=== PATIENT | female | born 1935 | race Caucasian/White ===

== ENCOUNTER 2020-10-25 11:55 | Emergency (ER) | payer MEDICARE, BC ==
[2020-10-25] MEDS ORDERED: GI Cocktail Oral Solution 30 ML PO ONE (12:06)
[2020-10-25 12:46] LABS: ANION GAP 14.2 mEq/L (7-13); CHLORIDE,CL 104 mmol/L (98-107); SODIUM,NA 143 mmol/L (136-145)
--- NOTE | 2020-10-25 12:47 | EDM.PDOC ---
ED HPI GENERAL MEDICAL PROBLEM - General Chief Complaint: Cardiovascular Problem Stated Complaint: CHEST PAIN Time Seen by Provider: 10/25/20 12:19 Source of Information: Reports: Patient, RN, RN Notes Reviewed History Limitations: Reports: No Limitations - History of Present Illness INITIAL COMMENTS - FREE TEXT/NARRATIVE: Trace is an 85 y/o female with history of breast cancer s/p mastectomy who presents to the ED via personal vehicle with complaints of chest pain. The patient reports her chest pain began abruptly at approximately 0930 while she was sitting in her chair; she had eaten pancakes and sausage about two hours prior. She states the pain originates in her midsternal chest and radiates through her chest into her back. She characterizes the pain as an ache and rates it as a 5/10. The patient denies experiencing pain similar to this in the past and has taken one dose of Aspirin 325mg. She denies recent illness, fever, shaking chills, palpitations, nausea, vomiting, dysuria, or diarrhea. She does attest to slight shortness of breath with the chest pain. She denies a history of tobacco, alcohol, or recreational drug use. Chest Pain Score (Numeric/FACES): 5 - Related Data Allergies Allergy/AdvReac Type Severity Reaction Status Date / Time sulfa ointment Allergy Unknown Rash Uncoded 10/25/20 12:14 Home Meds: Home Meds Acetaminophen [Tylenol Arthritis] 650 mg PO Q8H PRN 07/23/20 [History] Aspirin [Aspirin EC] 325 mg PO Q6H PRN 07/23/20 [History] Calcium Carbonate/Vitamin D3 [Calcium 600-Vit D3 400 Tablet] 1 tab PO BID 07/23/20 [History] Carboxymethylcellulose Sodium [Artificial Tears] 1 drop EYEBOTH BID 07/23/20 [History] Fexofenadine [Martina] 30 mg PO DAILY PRN 07/23/20 [History] L.acidoph,Paracasei, B.lactis [Probiotic] 1 cap PO DAILY PRN 07/23/20 [History] Nystatin [Nystatin Crm] 1 applic TOP ASDIRECTED PRN 07/23/20 [History] Sennosides/Docusate Sodium [Senna-Docusate Sodium Tablet] 1 tab PO BID 07/23/20 [History] Cholecalciferol (Vitamin D3) [Vitamin D3] 1,000 unit PO DAILY 07/24/20 [History] Zinc 50 mg PO DAILY 07/24/20 [History] Past Medical History Musculoskeletal History: Reports: Arthritis Oncologic (Cancer) History: Reports: Breast - Past Surgical History GI Surgical History: Reports: Appendectomy Female Surgical History: Reports: Mastectomy Social & Family History - Family History Family Medical History: No Pertinent Family History - Tobacco Use Tobacco Use Status *Q: Never Tobacco User - Caffeine Use Caffeine Use: Reports: Coffee - Recreational Drug Use Recreational Drug Use: No ED ROS GENERAL - Review of Systems Review Of Systems: Comprehensive ROS is negative, except as noted in HPI. ED EXAM, GENERAL - Physical Exam Exam: See Below Exam Limited By: No Limitations General Appearance: Alert, No Apparent Distress Eye Exam: Left Eye: Conjunctival Injection (To lacrimal caruncula ), Bilateral Eye: PERRL (3mm) Ears: Normal External Exam, Normal Canal, Hearing Grossly Normal, Normal TMs Ear Exam: Bilateral Ear: Auricle Normal, Canal Normal, TM normal Nose: Normal Inspection, Normal Mucosa, No Blood Throat/Mouth: Normal Voice, No Airway Compromise. No: Normal Oropharynx (Dry oral mucous membranes) Head: Atraumatic, Normocephalic Neck: Normal Inspection, Supple, Non-Tender, Full Range of Motion Respiratory/Chest: No Respiratory Distress, No Accessory Muscle Use, Rales (To LLL ). No: Chest Non-Tender (Tenderness not reproducible or agravated by palpation), Crackles, Rhonchi, Wheezing Cardiovascular: Normal Peripheral Pulses, Regular Rate, Rhythm, No Edema, No Gallop, No JVD, No Murmur, No Rub Peripheral Pulses: 2+: Radial (L), Radial (R) GI/Abdominal: Normal Bowel Sounds, Soft, Non-Tender, No Distention, No Abnormal Bruit, No Mass, Pelvis Stable (Female) Exam: Deferred Rectal (Female) Exam: Deferred Back Exam: Normal Inspection, Full Range of Motion Extremities: Normal Inspection, Normal Range of Motion, Non-Tender, Normal Capillary Refill, No Pedal Edema Neurological: Alert, Oriented, CN II-XII Intact, Normal Cognition, Normal Gait, No Motor/Sensory Deficits Psychiatric: Normal Affect, Normal Mood Skin Exam: Warm, Dry, Intact, Normal Color, No Rash. No: Ecchymosis, Erythema, Jaundice, Mottled, Pallor, Petechiae #1 Interpretation EKG Date: 10/25/20 Time: 12:06 Rhythm: NSR Rate (Beats/Min): 82 [place]: Normal P-Wave: Present QRS: Normal ST-T: Normal QT: Normal NV/PQ Interval: 0.121 Comparison: NA - No Prior EKG EKG Interpretation Comments: NSR; No evidence of acute myocardial ischemia Course - Vital Signs Last Recorded V/S: Last Vital Signs Temp 98 F 10/25/20 12:09 Pulse 86 10/25/20 12:09 Resp 12 10/25/20 12:09 BP 167/83 H 10/25/20 12:09 Pulse Ox 98 10/25/20 12:09 - Orders/Labs/Meds Orders: Active Orders 24 hr Category Date Time Status EKG Documentation Completion [RC] STAT Care 10/25/20 12:00 Active Labs: Laboratory Tests 10/25/20 10/25/20 10/25/20 Range/Units 12:16 12:16 12:16 WBC 10.8 H (5.0-10.0) 10^3/uL RBC 4.15 L (4.2-5.4) 10^6/uL Hgb 12.3 (12.0-16.0) g/dL Hct 38.7 (37.0-47.0) % MCV 93.3 (80-100) fL MCH 29.6 (27.0-34.0) pg MCHC 31.8 L (33.0-35.0) g/dL Plt Count 197 (150-450) 10^3/uL Neut % (Auto) 81.8 H (42.2-75.2) % Lymph % (Auto) 9.7 L (20.5-50.1) % [place] % (Auto) 6.8 (2-8) % Eos % (Auto) 1.4 (1.0-3.0) % Baso % (Auto) 0.3 (0.0-1.0) % Sodium 143 (136-145) mmol/L Potassium 4.2 (3.5-5.1) mmol/L Chloride 104 (98-107) mmol/L Carbon Dioxide 29 (21-32) mmol/L Anion Gap 14.2 H (7-13) mEq/L BUN 17 (7-18) mg/dL Creatinine 1.17 H (0.55-1.02) mg/dL Est Cr Clr Drug Dosing 29.80 mL/min Estimated GFR (MDRD) 44 BUN/Creatinine Ratio 14.5 (No establ ref range) Glucose 99 (70-99) mg/dL Lactic Acid 1.2 (0.4-2.0) mmol/L Calcium 8.4 L (8.5-10.1) mg/dL Total Bilirubin 0.6 (0.2-1.0) mg/dL AST 89 H (15-37) U/L ALT 58 (14-59) U/L Alkaline Phosphatase 88 (46-116) U/L Troponin I < 0.017 (0.000-0.056) ng/mL C-Reactive Protein 0.2 (0.0-0.9) mg/dL B-Natriuretic Peptide 62 (0-100) pg/ml Total Protein 6.8 (6.4-8.2) g/dL Albumin 3.4 (3.4-5.0) g/dL Globulin 3.4 Albumin/Globulin Ratio 1.0 Amylase 38 (25-115) U/L Lipase 77 (73-393) U/L Urine Color (YELLOW) Urine Appearance (CLEAR) Urine pH (5.0-9.0) Ur Specific [place] (1.005-1.030) Urine Protein (NEGATIVE) Urine Glucose (UA) (NEGATIVE) Urine Ketones (NEGATIVE) Urine Occult Blood (NEGATIVE) Urine Nitrite (NEGATIVE) Urine Bilirubin (NEGATIVE) Urine Urobilinogen (0.2-1.0) mg/dL Ur Leukocyte Esterase (NEGATIVE) 10/25/20 Range/Units 13:20 WBC (5.0-10.0) 10^3/uL RBC (4.2-5.4) 10^6/uL Hgb (12.0-16.0) g/dL Hct (37.0-47.0) % MCV (80-100) fL MCH (27.0-34.0) pg MCHC (33.0-35.0) g/dL Plt Count (150-450) 10^3/uL Neut % (Auto) (42.2-75.2) % Lymph % (Auto) (20.5-50.1) % [place] % (Auto) (2-8) % Eos % (Auto) (1.0-3.0) % Baso % (Auto) (0.0-1.0) % Sodium (136-145) mmol/L Potassium (3.5-5.1) mmol/L Chloride (98-107) mmol/L Carbon Dioxide (21-32) mmol/L Anion Gap (7-13) mEq/L BUN (7-18) mg/dL Creatinine (0.55-1.02) mg/dL Est Cr Clr Drug Dosing mL/min Estimated GFR (MDRD) BUN/Creatinine Ratio (No establ ref range) Glucose (70-99) mg/dL Lactic Acid (0.4-2.0) mmol/L Calcium (8.5-10.1) mg/dL Total Bilirubin (0.2-1.0) mg/dL AST (15-37) U/L ALT (14-59) U/L Alkaline Phosphatase (46-116) U/L Troponin I (0.000-0.056) ng/mL C-Reactive Protein (0.0-0.9) mg/dL B-Natriuretic Peptide (0-100) pg/ml Total Protein (6.4-8.2) g/dL Albumin (3.4-5.0) g/dL Globulin Albumin/Globulin Ratio Amylase (25-115) U/L Lipase (73-393) U/L Urine Color Yellow (YELLOW) Urine Appearance Clear (CLEAR) Urine pH 7.0 (5.0-9.0) Ur Specific [place] 1.015 (1.005-1.030) Urine Protein Negative (NEGATIVE) Urine Glucose (UA) Negative (NEGATIVE) Urine Ketones Negative (NEGATIVE) Urine Occult Blood Negative (NEGATIVE) Urine Nitrite Negative (NEGATIVE) Urine Bilirubin Negative (NEGATIVE) Urine Urobilinogen 0.2 (0.2-1.0) mg/dL Ur Leukocyte Esterase Negative (NEGATIVE) Meds: Medications Discontinued Medications Generic Name Dose Route Start Last Admin Trade Name Freq PRN Reason Stop Dose Admin Al Hydroxide/Mg Hydroxide 30 ml 10/25/20 12:06 10/25/20 12:26 Gi Cocktail Oral Solution 30 Ml PO 10/25/20 12:07 30 ml ONETIME ONE Administration Ketorolac Tromethamine 15 mg 10/25/20 13:09 10/25/20 13:22 Ketorolac 30 Mg/Ml Sdv IVPUSH 10/25/20 13:10 15 mg ONETIME ONE Administration Pantoprazole Sodium 40 mg 10/25/20 13:10 10/25/20 13:24 Pantoprazole 40 Mg Vial IVPUSH 10/25/20 13:11 40 mg ONETIME ONE Administration - Radiology Interpretation Free Text/Narrative:: [facility] Final Radiology Report Call: [phone] assistance Online chat: [email or web address] Name: TRACE JAMES Age: 85Years F Date: 10/25/2020 SSN: -- : [id number] Study: CR CHEST 1V FRONTAL Requesting Physician: Margot Rodriguez Images: 1 Addl Studies: Provided Clinical History: Chest pain; Rales to LLL Contrast: Contrast Medium: Contrast Amount: Contrast Method: CONFIDENTIALITY STATEMENT This report is intended only for use by the referring physician, and only in accordance with law. If you received this in error, call [phone]. Page 1 of 1 PROCEDURE INFORMATION: Exam: XR Chest Exam date and time: 10/25/2020 12:55 PM Age: 85 years old Clinical indication: Chest pain; Additional info: Chest pain; Rales to lll TECHNIQUE: Imaging protocol: XR of the chest. Views: 1 view. COMPARISON: No relevant prior studies available. FINDINGS: Lungs: Unremarkable. No consolidation. Pleural spaces: Unremarkable. No pleural effusion. No pneumothorax. Heart/Mediastinum: Large hiatal hernia. Bones/joints: Unremarkable. Soft tissues: Surgical clips in the right axilla. IMPRESSION: No acute cardiopulmonary disease. Thank you for allowing us to participate in the care of your patient. Dictated and Authenticated by: Sean Hopper MD 10/25/2020 1:02 PM Central Time ([place] & [place]) - Re-Assessments/Exams Free Text/Narrative Re-Assessment/Exam: 10/25/20 Patient given GI cocktail. EKG revealed NSR with no evidence of myocardial ischemia. Troponin WNL. Given length of time patient has experienced chest pain, would expect Troponin rise from baseline if cardiac in nature. BNP appropriate. Mild elevation in WBC at 10.8 with left shift via CBC; no evidence of anemia. Electrolytes and liver function appropriate via CMP. Kidney function slightly reduced with creatinine at 1.17, BUN 17, and GFR 44; likely related to mild dehydration given physical exam. Amylase and Lipase WNL. No elevation in CRP. CXR reveals no acute cardiopulmonary findings, however a large hiatal hernia is appreciated. Patient verbalized little improvement in back pain following GI cocktail. Will treat with Protonix and Ketorolac UA unremarkable. Patient verbalized improvement in pain following medications. Discussed supportive cares for hiatal hernia with GERD, as well as red flag signs and symptoms which would warrant reevaluation. Patient instructed to follow up with primary care provider following course of omeprazole. Patient verbalized understanding and agreement with the plan of care. 10/25/20 14:01 Departure - Departure Time of Disposition: 13:46 Disposition: Home, Self-Care 01 Condition: Good Clinical Impression: Atypical chest pain, Hiatal hernia with GERD Instructions: Food Choices for Gastroesophageal Reflux Disease, Adult, [id number], Hiatal Hernia, Nonspecific Chest Pain, Adult, [id number] Forms: ED Department Discharge Additional Instructions: Rx: omeprazole 1.) Follow up with your primary care provider following the course of omeprazole, or sooner should symptoms persist with medication. 2.) Drink plenty of water to stay hydrated. 3.) Eat small, frequent snack-like meals. Sepsis Event Note (ED) - Evaluation Sepsis Screening Result: No Definite Risk - Focused Exam Vital Signs: Vital Signs Temp Pulse Resp BP Pulse Ox 10/25/20 12:09 98 F 86 12 167/83 H 98 - My Orders Last 24 Hours: My Active Orders 10/25/20 12:00 EKG Documentation Completion [RC] STAT - Assessment/Plan Last 24 Hours: My Active Orders 10/25/20 12:00 EKG Documentation Completion [RC] STAT
--- NOTE | 2020-10-25 13:02 | CR ---
PROCEDURE INFORMATION: Exam: XR Chest Exam date and time: 10/25/2020 12:55 PM Age: 85 years old Clinical indication: Chest pain; Additional info: Chest pain; Rales to lll TECHNIQUE: Imaging protocol: XR of the chest. Views: 1 view. COMPARISON: No relevant prior studies available. FINDINGS: Lungs: Unremarkable. No consolidation. Pleural spaces: Unremarkable. No pleural effusion. No pneumothorax. Heart/Mediastinum: Large hiatal hernia. Bones/joints: Unremarkable. Soft tissues: Surgical clips in the right axilla. IMPRESSION: No acute cardiopulmonary disease.
[2020-10-25] MEDS ORDERED: Ketorolac 30 MG/ML SDV IVPUSH ONE (13:09)
[2020-10-25] MEDS ORDERED: Pantoprazole 40 MG Vial IVPUSH ONE (13:10)
== END 2020-10-25 14:11 | disposition home or self-care (01) ==
LOC: DL.ED 11:55
DX: K21.9 Gastro-esophageal reflux disease without esophagitis (principal); K44.9 Diaphragmatic hernia without obstruction or gangrene; Z88.2 Allergy status to sulfonamides
CPT/HCPCS: 36415; 71045; 80053; 81003; 82150; 83605; 83690; 83880; 84484; 85025; 86140; 93005; 93010; 96374; 96375; 99283; 99285; A9270; C9113; J1885